=== PATIENT | female | born 1960 | race Two or more races ===

== ENCOUNTER 2017-11-20 09:04 | Day surgery (SDC) | payer MEDICARE, MEDICAID ==
[2017-11-20] MEDS ORDERED: Propofol 10 mg/ml Inj (20 ML) ONE (12:01)
[2017-11-20] MEDS ORDERED: Lactated Ringer's 500 ML IV SCH (12:15)
[2017-11-20 12:44] VITALS: TEMP 96.9
[2017-11-20 13:10] VITALS: O2SAT 100
[2017-11-20 13:17] VITALS: BP 104/63; PULSE 50; RESP 14
== END 2017-11-20 13:15 | disposition home or self-care (01) ==
LOC: C.ENDO 09:04
PROVIDERS: ATTEND Internal Medicine Gastroenterology
DX: Z12.11 Encounter for screening for malignant neoplasm of colon (principal); K63.5 Polyp of colon; K64.1 Second degree hemorrhoids
CPT/HCPCS: 45380; 45385; 88305; J2704; J3010; J7120

== ENCOUNTER 2018-11-07 13:13 | Emergency (ER) | payer MEDICARE, MEDICAID ==
[2018-11-07 13:36] VITALS: BMI 35.7
[2018-11-07 13:39] VITALS: RESP 18; O2SAT 95
--- NOTE | 2018-11-07 14:50 | C.PDOC ---
History Of Present Illness 58 y/o female with a PMHx of schizophrenia and HIV, comes in from skilled nursing for several complaints. Patient reports she has been having bilateral leg pain for months. She denies any focal weakness or numbness but reports increasing difficulty ambulating due to the pain. Patient also notes bloating stomach for several months now. Denies any nausea, vomiting, or diarrhea. Patient is a very poor historian. Time Seen by Provider: 11/07/18 14:16 Chief Complaint (Nursing): Lower Extremity Problem/Injury History Per: Patient History/Exam Limitations: no limitations Onset/Duration Of Symptoms: Days Current Symptoms Are (Timing): Still Present Past Medical History Reviewed: Historical Data, Nursing Documentation, Vital Signs Vital Signs: Last Vital Signs Temp 97.9 F 11/07/18 13:35 Pulse 100 H 11/07/18 13:35 Resp 18 11/07/18 13:35 BP 114/82 11/07/18 13:35 Pulse Ox 95 11/07/18 13:35 - Medical History PMH: Bipolar Disorder, HIV, Schizophrenia, Seizures Denies: Chronic Kidney Disease Family History: States: Unknown Family Hx - Social History Hx Alcohol Use: No Hx Substance Use: No - Immunization History Hx Tetanus Toxoid Vaccination: No Hx Influenza Vaccination: No Hx Pneumococcal Vaccination: No Review Of Systems Constitutional: Negative for: Fever, Chills Cardiovascular: Negative for: Chest Pain Respiratory: Negative for: Shortness of Breath Gastrointestinal: Positive for: Other (Abdominal bloating). Negative for: Nausea, Vomiting, Abdominal Pain, Diarrhea Musculoskeletal: Positive for: Leg Pain Physical Exam - Physical Exam Appears: Non-toxic, No Acute Distress Skin: Warm, Dry Head: Atraumatic, Normacephalic Eye(s): bilateral: Normal Inspection, PERRL, EOMI Neck: Normal ROM Chest: Symmetrical Cardiovascular: Rhythm Regular, No Murmur Respiratory: Normal Breath Sounds, No Rales, No Rhonchi, No Wheezing Gastrointestinal/Abdominal: Soft, Tenderness (mild non-focal tenderness), No Distention, No Guarding, No Rebound Extremity: Normal ROM, Tenderness (Non-focal tenderness to the lower extre mities), Capillary Refill (< 2 sec), Swelling (Mild left lower extremity swelling) Pulses: Left Dorsalis Pedis: Normal, Right Dorsalis Pedis: Normal Neurological/Psych: Oriented x3, Normal Motor, Normal Sensation ED Course And Treatment - Laboratory Results Result Diagrams: 11/07/18 16:17 11/07/18 16:17 O2 Sat by Pulse Oximetry: 95 (RA) Pulse Ox Interpretation: Normal Medical Decision Making Medical Decision Making: Impression: Lower extremity pain/swelling, r/o DVT Plan: --Labs --Doppler US Labs reviewed. US is negative for DVT. Patient notified of results. Will d/c home, advised to follow up with PMD. chronic leg pain/abdomianl pain. pt poor historain no gi bleeding as per pt. lasb neg. ua neg. no indication for emergent imaging no rlq ttp. dvt study neg. no cp no sob. updated pmd gudelia. agrees with outpt fu. Disposition - Disposition Disposition: HOME/ ROUTINE Disposition Time: 18:00 Condition: STABLE Additional Instructions: follow up with dr galeas. see specialist. you will need further managment and workup as an outpatient. Instructions: Acute Abdomen (Belly Pain), Joseph Splints (DC) Forms: [employer] ([place]ian) - Clinical Impression Clinical Impression: Abdominal pain, Leg pain - Scribe Statement The provider has reviewed the documentation as recorded by the Ryan Jones Provider Attestation: All medical record entries made by the Ryan were at my direction and personally dictated by me. I have reviewed the chart and agree that the record accurately reflects my personal performance of the history, physical exam, medical decision making, and the department course for this patient. I have also personally directed, reviewed, and agree with the discharge instructions and disposition.
[2018-11-07 16:22] LABS: BASO # 0.1 K/uL (0.0-0.2); BASO % 1.2 % (0.0-2.0); EOS # 0.1 K/uL (0.0-0.7); EOS % 2.3 % (0.0-4.0); HEMOGLOBIN 13.9 g/dL (11.0-16.0); LYMPH # 2.9 K/uL (1.0-4.3); LYMPH % 44.4 % (20.0-40.0); MEAN CELL VOLUME 96.6 fL (81.0-99.0); MEAN CORPUSCULAR HEMOGLOBIN 32.2 pg (27.0-31.0); MEAN CORPUSCULAR HGB CONC 33.3 g/dL (33.0-37.0); MEAN PLATELET VOLUME 9.7 fL (7.2-11.7); MONO # 0.4 K/uL (0.0-0.8); MONO % 6.1 % (0.0-10.0); NRBC % 0.1 % (0.0-2.0); RBC 4.33 Mil/uL (3.80-5.20); RED CELL DISTRIBUTION WIDTH 14.5 % (11.5-14.5); WHITE BLOOD COUNT 6.4 K/uL (4.8-10.8)
[2018-11-07 16:38] LABS: PROTHROMBIN TIME 11.4 SECONDS (9.7-12.2)
[2018-11-07 16:40] LABS: ALB/GLOB RATIO 1.2 (1.0-2.1); ALBUMIN 4.5 g/dL (3.5-5.0); ALT/SGPT 13 U/L (9-52); AST/SGOT 27 U/L (14-36); BLOOD UREA NITROGEN 14 mg/dL (7-17); GFR NON-AFRICAN AMERICAN > 60; LIPASE 100 U/L (23-300)
[2018-11-07 17:19] LABS: SQUAMOUS EPITHIAL 6 /hpf (0-5); URINE BILIRUBIN NEGATIVE (NEGATIVE); URINE BLOOD NEGATIVE (NEGATIVE); URINE CLARITY Clear (Clear); URINE COLOR Yellow (YELLOW); URINE GLUCOSE (UA) NORMAL (Normal); URINE LEUKOCYTE ESTERASE TRACE Leu/uL (Negative); URINE PROTEIN NEGATIVE (NEGATIVE); URINE UROBILINOGEN NORMAL mg/dL (0.2-1.0)
[2018-11-07 18:27] VITALS: BP 107/76; PULSE 73; TEMP 98.1
--- NOTE | 2018-11-10 13:54 | VASCLAB ---
Date of service: 11/07/2018 PROCEDURE: Lower Extremity Venous Duplex Exam. HISTORY: leg pain PRIORS: None. TECHNIQUE: Bilateral common femoral, femoral, popliteal and posterior tibial, peroneal and great saphenous veins were evaluated. Flow was assessed with color Doppler, compressibility, assessment of phasic flow and augmentation response. Report prepared by Storm Poon, DEMIAN, RVT FINDINGS: RIGHT: 1. Common Femoral Vein: 1.1. Compressibility - Fully compressible: Thrombus - None : Flow - Phasic: Augmentation -Normal: Reflux - None. 2. Femoral Vein: 2.1. Compressibility - Fully compressible: Thrombus - None : Flow - Phasic: Augmentation -Normal: Reflux - None. 3. Popliteal Vein: 3.1. Compressibility - Fully compressible: Thrombus - None : Flow - Phasic: Augmentation -Normal: Reflux - None. 4. Posterior Tibial Vein: 4.1. Compressibility - Fully compressible: Thrombus - None: Flow - Phasic: Augmentation -Normal: Reflux - None. 5. Peroneal Vein: 5.1. Compressibility - Fully compressible: Thrombus - None: Flow - Phasic: Augmentation -Normal: Reflux - None. 6. Great Saphenous Vein: 6.1. Compressibility - Fully compressible: Thrombus - None: Flow - Phasic: Augmentation - Normal: Reflux - Yes. LEFT: 1. Common Femoral Vein: 1.1. Compressibility - Fully compressible: Thrombus - None: Flow - Phasic: Augmentation -Normal: Reflux - None. 2. Femoral Vein: 2.1. Compressibility - Fully compressible: Thrombus - None: Flow - Phasic: Augmentation -Normal: Reflux - None. 3. Popliteal Vein: 3.1. Compressibility - Fully compressible: Thrombus - None : Flow - Phasic: Augmentation -Normal: Reflux - None. 4. Posterior Tibial Vein: 4.1. Compressibility - Fully compressible: Thrombus - None: Flow - Phasic: Augmentation -Normal: Reflux - None. 5. Peroneal Vein: 5.1. Compressibility - Fully compressible: Thrombus - None: Flow - Phasic: Augmentation -Normal: Reflux - None. 6. Great Saphenous Vein: 6.1. Compressibility - Fully compressible: Thrombus - None: Flow - Phasic: Augmentation - Normal: Reflux - None. OTHER FINDINGS: Right: None significant. Left: None significant. IMPRESSION: Right: No evidence of deep or superficial vein thrombosis of the right lower extremity. Valvular incompetence of the right greater saphenous vein. Left: No evidence of deep or superficial vein thrombosis of the left lower extremity. Normal valve function noted of the left side.
== END 2018-11-07 18:40 | disposition home or self-care (01) ==
LOC: C.ER 13:13
DX: M79.604 Pain in right leg (principal); M79.605 Pain in left leg; R10.9 Unspecified abdominal pain; F20.9 Schizophrenia, unspecified; F31.9 Bipolar disorder, unspecified